=== PATIENT | female | born 1960 | race Caucasian/White ===

== ENCOUNTER 2022-03-07 08:13 | Day surgery (SDC) | payer OTHER ==
[2022-03-05 11:23] VITALS: BMI 28.1
[2022-03-07] MEDS ORDERED: Fentanyl 100 MCG/2 ML VIAL ONE (09:25)
[2022-03-07] MEDS ORDERED: PROPOFOL 20 ML ONE ×3 (09:25→10:12)
[2022-03-07] MEDS ORDERED: Lidocaine 1% PF 5 ML VIAL ONE (09:26)
== END 2022-03-07 10:57 | disposition home or self-care (01) ==
LOC: CSHSDC 08:13
PROVIDERS: ATTEND Internal Medicine Gastroenterology
DX: K57.31 Diverticulosis of large intestine without perforation or abscess with bleeding (principal); K64.9 Unspecified hemorrhoids; K44.9 Diaphragmatic hernia without obstruction or gangrene; K29.80 Duodenitis without bleeding; K31.7 Polyp of stomach and duodenum; K20.90 Esophagitis, unspecified without bleeding; E78.5 Hyperlipidemia, unspecified; Z88.2 Allergy status to sulfonamides; Z88.5 Allergy status to narcotic agent; Z88.1 Allergy status to other antibiotic agents; Z88.8 Allergy status to other drugs, medicaments and biological substances
CPT/HCPCS: 88305; 88342; J2704; J3010

== ENCOUNTER 2023-04-19 02:15 | Inpatient (IN) | payer OTHER ==
[2023-04-19] MEDS ORDERED: Zolpidem Tartrate 5 MG TAB PO PRN (04:25)
[2023-04-19] MEDS ORDERED: Acetaminophen 325 MG TAB PO PRN (04:25)
[2023-04-19] MEDS ORDERED: Senokot S 8.6-50 MG TAB PO PRN (04:25)
[2023-04-19] MEDS ORDERED: Guaifenesin DM 100-10/5 ML UDCUP PO PRN (04:25)
[2023-04-19] MEDS ORDERED: ALPRAZolam 0.25 MG TAB PO PRN (04:30)
[2023-04-19] MEDS ORDERED: Morphine 4 MG/ML VIAL SLOW IVP PRN (04:31)
[2023-04-19] MEDS ORDERED: Nicotine 14 MG PATCH TD SCH (05:00)
[2023-04-19 05:17] LABS: ALT (SGPT) 614 U/L (8-55); AST (SGOT) 170 U/L (5-34); Albumin 3.4 g/dL (3.5-5.0); Alkaline Phosphatase 175 U/L (40-110); Anion Gap 14 mmol/L (10-20); BUN (Urea Nitrogen) 9 mg/dL (9.8-20.1); Bilirubin, Total 4.4 mg/dL (0.2-1.2); CK (CPK) 27 U/L (29-168); Calc. Creatinine Clearance 0 mL/min (70-130); Calcium 8.4 mg/dL (7.8-10.44); Carbon Dioxide 21 mmol/L (22-29); Chloride 108 mmol/L (98-107); Estimated GFR 97; Globulin 2.8 g/dL (2.4-3.5); Glucose 81 mg/dL (70-105); Potassium 4.1 mmol/L (3.5-5.1); Protein, Total 6.2 g/dL (6.0-8.3); Sodium 139 mmol/L (136-145)
[2023-04-19] MEDS: Dextrose 5%-Lactated Ringers 1,000 ML IV SCH ×3 (05:48→22:04)
[2023-04-19 07:39] VITALS: BMI 29.4
[2023-04-19] MEDS: metroNIDAZOLE 500 MG in Premix Bag 1 BAG IVPB SCH ×2 (09:02→16:48)
[2023-04-19] MEDS: Famotidine/PF 20 mg/2ml Vial SLOW IVP SCH ×2 (09:03→22:06)
[2023-04-19 12:44] LABS: HBCM Index 0.07 S/CO (0-0.79); HBSAg Index 0.23 S/CO (0-0.99); Hep A IgM AB Non-Reactive S/CO (NonReactive); Hep A IgM S/CO 0.26 S/CO (0-0.79); Hep B Surf Ag Non-Reactive S/CO (NonReactive); Hep C IgG Ab Non-Reactive S/CO (NonReactive); Hep C Index 0.11 S/CO (0-0.79); Hepatitis B Core IgM Abs Non-Reactive S/CO (NonReactive)
[2023-04-19] MEDS: Calcium Carbonate 500 MG ChewTAB PO PRN (16:43)
[2023-04-19] MEDS: Morphine 2 MG/ML VIAL SLOW IVP PRN (16:44)
[2023-04-19] MEDS: traZODone HCl 50 MG TAB PO SCH (22:05)
[2023-04-19] MEDS: Nicotine 14 MG PATCH TD SCH (22:05)
[2023-04-19] MEDS: Nortriptyline HCl 25 MG CAP PO SCH (22:06)
[2023-04-20] MEDS: metroNIDAZOLE 500 MG in Premix Bag 1 BAG IVPB SCH ×3 (00:40→17:09)
[2023-04-20] MEDS: LevoFLOXacin 750 mg/D5W 750 MG in Premix Bag 1 BAG IVPB SCH (02:02)
[2023-04-20] MEDS: Dextrose 5%-Lactated Ringers 1,000 ML IV SCH ×2 (03:30→13:08)
[2023-04-20] MEDS: Ondansetron PF 4 MG/2 ML Vial IVP PRN ×2 (03:30→22:18)
[2023-04-20 04:19] LABS: #Basophils 0.2 10x3/uL (0.0-0.2); #Eosinphils 0.4 10x3/uL (0.0-0.5); %Basophils 1.7 % (0.0-2.0); %Eosinophils 4.1 % (0.0-6.0); %Lymphocytes 37.5 % (18.0-47.0); %Monocytes 11.1 % (0.0-10.0); %Neutrophils 45.1 % (40.0-75.0); Hematocrit 41.6 % (34.9-44.5); Hemoglobin 13.4 g/dL (12.0-15.5); Mean Corpuscular HGB CONC 32.2 g/dL (32.0-36.0); Mean Corpuscular Hemoglobin 27.7 pg (27.0-33.0); Mean Platelet Volume 9.8 fl (7.4-10.4); Platelet Count 342 10x3/uL (150-450); Red Blood Cell (RBC) Count 4.84 10x6/uL (3.90-5.03); White Blood Cell (WBC) Count 8.8 10x3/uL (3.5-10.5)
[2023-04-20 04:25] LABS: ALT (SGPT) 485 U/L (8-55); AST (SGOT) 107 U/L (5-34); Albumin 3.5 g/dL (3.5-5.0); Alkaline Phosphatase 182 U/L (40-110); Anion Gap 13 mmol/L (10-20); BUN (Urea Nitrogen) 7 mg/dL (9.8-20.1); Calc. Creatinine Clearance 88 mL/min (70-130); Calcium 8.8 mg/dL (7.8-10.44); Carbon Dioxide 23 mmol/L (22-29); Chloride 108 mmol/L (98-107); Estimated GFR 83; Globulin 2.8 g/dL (2.4-3.5); Glucose 118 mg/dL (70-105); Lipase 29 U/L (8-78); Potassium 3.8 mmol/L (3.5-5.1); Protein, Total 6.3 g/dL (6.0-8.3); Sodium 140 mmol/L (136-145)
[2023-04-20] MEDS ORDERED: Iopamidol 30 ML ONE ×2 (07:17→07:31)
[2023-04-20] MEDS ORDERED: EPINEPHrine 1 MG/ML VIAL ONE (07:17)
[2023-04-20] MEDS ORDERED: Bupivacaine PF 0.5% 30 ML VIAL ONE (07:17)
[2023-04-20] MEDS ORDERED: Indomethacin 50 MG SUPP ONE (07:18)
[2023-04-20] MEDS ORDERED: SUGAMMADEX SODIUM 200 MG/2 ML VIAL ONE (07:30)
[2023-04-20] MEDS ORDERED: Dexamethasone 20 MG/5 ML VIAL ONE (08:02)
[2023-04-20] MEDS ORDERED: PROPOFOL 20 ML ONE (08:02)
[2023-04-20] MEDS ORDERED: Rocuronium Bromide 10 MG/ML (10ML VIAL) ONE (08:02)
[2023-04-20] MEDS ORDERED: Ondansetron PF 4 MG/2 ML Vial ONE (08:02)
[2023-04-20] MEDS ORDERED: Lidocaine 1% PF 5 ML VIAL ONE (08:02)
[2023-04-20] MEDS ORDERED: fentaNYL 50 mcg/mL 1 mL Vial ONE ×2 (08:02→09:01)
[2023-04-20] MEDS ORDERED: Glucagon 1 MG/ML KIT ONE (08:48)
[2023-04-20] MEDS: Famotidine/PF 20 mg/2ml Vial SLOW IVP SCH ×2 (09:00→22:23)
[2023-04-20] MEDS: Nortriptyline HCl 25 MG CAP PO SCH (21:51)
[2023-04-20] MEDS: traZODone HCl 50 MG TAB PO SCH (21:51)
[2023-04-20] MEDS: Nicotine 14 MG PATCH TD SCH (21:52)
[2023-04-20] MEDS: Calcium Carbonate 500 MG ChewTAB PO PRN (21:53)
[2023-04-20] MEDS: Morphine 2 MG/ML VIAL SLOW IVP PRN (22:15)
[2023-04-21] MEDS: Dextrose 5%-Lactated Ringers 1,000 ML IV SCH ×2 (01:16→08:29)
[2023-04-21] MEDS: metroNIDAZOLE 500 MG in Premix Bag 1 BAG IVPB SCH ×2 (01:17→08:21)
[2023-04-21] MEDS: Morphine 2 MG/ML VIAL SLOW IVP PRN (01:19)
[2023-04-21] MEDS: LevoFLOXacin 750 mg/D5W 750 MG in Premix Bag 1 BAG IVPB SCH (03:04)
[2023-04-21] MEDS: Calcium Carbonate 500 MG ChewTAB PO PRN (03:13)
[2023-04-21 03:58] LABS: #Monocytes 1.6 10x3/uL (0.0-1.1); #Neutrophils 14.9 10x3/uL (1.5-8.4); %Basophils 0.2 % (0.0-2.0); %Eosinophils 0.1 % (0.0-6.0); %Monocytes 8.6 % (0.0-10.0); %Neutrophils 80.6 % (40.0-75.0); Hematocrit 37.9 % (34.9-44.5); Hemoglobin 12.1 g/dL (12.0-15.5); Mean Corpuscular HGB CONC 31.9 g/dL (32.0-36.0); Mean Corpuscular Hemoglobin 27.5 pg (27.0-33.0); Mean Corpuscular Volume 86.1 fl (81.6-98.3); Mean Platelet Volume 10.2 fl (7.4-10.4); Platelet Count 331 10x3/uL (150-450); RBC Distribution Width 14.8 % (11.5-14.5); White Blood Cell (WBC) Count 18.5 10x3/uL (3.5-10.5)
[2023-04-21 04:05] LABS: ALT (SGPT) 462 U/L (8-55); AST (SGOT) 162 U/L (5-34); Albumin 3.2 g/dL (3.5-5.0); Alkaline Phosphatase 163 U/L (40-110); Anion Gap 16 mmol/L (10-20); BUN (Urea Nitrogen) 8 mg/dL (9.8-20.1); Bilirubin, Total 2.9 mg/dL (0.2-1.2); Calc. Creatinine Clearance 89 mL/min (70-130); Calcium 8.7 mg/dL (7.8-10.44); Carbon Dioxide 19 mmol/L (22-29); Chloride 106 mmol/L (98-107); Estimated GFR 84; Globulin 2.6 g/dL (2.4-3.5); Glucose 134 mg/dL (70-105); Lipase 14 U/L (8-78); Potassium 4.6 mmol/L (3.5-5.1); Protein, Total 5.8 g/dL (6.0-8.3); Sodium 136 mmol/L (136-145)
[2023-04-21 04:09] LABS: ALT (SGPT) 462 U/L (8-55); AST (SGOT) 163 U/L (5-34); Albumin 3.2 g/dL (3.5-5.0); Alkaline Phosphatase 165 U/L (40-110); Bilirubin, Total 2.8 mg/dL (0.2-1.2); Protein, Total 5.9 g/dL (6.0-8.3)
[2023-04-21] MEDS: Ondansetron PF 4 MG/2 ML Vial IVP PRN (05:09)
[2023-04-21] MEDS: Famotidine/PF 20 mg/2ml Vial SLOW IVP SCH (09:00)
[2023-04-21 13:58] VITALS: BP 124/67; TEMP 98.1
== END 2023-04-21 12:18 | disposition home or self-care (01) | DRG 419 ==
LOC: CSHTELE 04:00
PROVIDERS: ADMIT Student in an Organized Health Care Education/Training Program; ATTEND Family Medicine
PROC: 0FT44ZZ Resection of Gallbladder, Percutaneous Endoscopic Approach (ICD-10-PCS; principal; 2023-04-20)
PROC: BF141ZZ Fluoroscopy of Gallbladder, Bile Ducts and Pancreatic Ducts using Low Osmolar Contrast (ICD-10-PCS; 2023-04-20)
PROC: 0FC98ZZ Extirpation of Matter from Common Bile Duct, Via Natural or Artificial Opening Endoscopic (ICD-10-PCS; 2023-04-20)
PROC: 3E033XZ Introduction of Vasopressor into Peripheral Vein, Percutaneous Approach (ICD-10-PCS; 2023-04-20)
DX: K80.42 Calculus of bile duct with acute cholecystitis without obstruction (principal); F41.9 Anxiety disorder, unspecified; F32.A Depression, unspecified; G47.00 Insomnia, unspecified; F17.210 Nicotine dependence, cigarettes, uncomplicated; Z82.49 Family history of ischemic heart disease and other diseases of the circulatory system; Z90.710 Acquired absence of both cervix and uterus; Z88.0 Allergy status to penicillin; Z88.2 Allergy status to sulfonamides; Z88.5 Allergy status to narcotic agent; Z88.1 Allergy status to other antibiotic agents; Z88.8 Allergy status to other drugs, medicaments and biological substances; Z79.899 Other long term (current) drug therapy; Z71.0 Person encountering health services to consult on behalf of another person
CPT/HCPCS: 36415; 36416; 47532; 74330; 76705; 80053; 80074; 82550; 83690; 85025; 88304; C1725; C1769; C1889; J0171; J1100; J1611; J1650; J1956; J2272; J2405; J2704; J3010; Q9967; S0020; S0028